=== PATIENT | male | born 2000 | race Two or more races ===

== ENCOUNTER 2024-09-10 18:53 | Emergency (ER) | payer MEDICAID, SELFPAY ==
[2024-09-10 19:06] VITALS: BP 108/69; PULSE 106; RESP 18; TEMP 38.1; O2SAT 97; BMI 21.6
--- NOTE | 2024-09-10 19:09 | XR_ITS ---
Examination: CT abdomen with intravenous contrast CT pelvis with intravenous contrast 2-D coronal reconstructions 2-D sagittal reconstructions Date and time of exam:September 10, 20[address] hrs. Indications: Right lower abdominal pain onset today. CTDI: vol (mGy) 5.49 DLP: (mGycm) 296 Technique: Multiple axial sections of the abdomen and pelvis have been obtained. 64 slice high-resolution scanner used. 3 mm axial sections have been obtained, post intravenous injection 60 cc [id number] 2-D sagittal, coronal reconstructions obtained. Low dose protocols were performed. One or more of the following dose reduction techniques were used; automated exposure control, adjustment of the mA and/or KV according to patient size, use of iterative reconstruction technique. Findings: No focal liver or splenic lesions No gallstones No pancreatic or adrenal mass Renal or ureteral calculi, no hydronephrosis Aorta normal size There is diffuse hyperemia involving the colon Normal appendix No bowel obstruction Normal prostate Contracted urinary bladder The osseous structures are intact Impression: Mild nonspecific diffuse colitis pattern
--- NOTE | 2024-09-10 19:11 | PD.EDRME ---
Rapid Medical Screening Exam [facility] Arrival date/time: 09/10/24 18:53 24M with no significant PMH presents to ED with 2 days of fevers/chills, NV, lower ab pain (LLQ>RLQ), and non-bloody diarrhea. Chief Complaint: Abdominal Pain Time Seen by Provider: 09/10/24 22:19 Vital signs: Vital Signs Temperature 100.5 F H 09/10/24 19:06 Pulse Rate 106 H 09/10/24 19:06 Respiratory Rate 18 09/10/24 19:06 Blood Pressure 108/69 09/10/24 19:06 Pulse Oximetry (%) 97 09/10/24 19:06 Oxygen Delivery Method Room Air 09/10/24 19:06
[2024-09-10 19:30] LABS: Basophils % (Auto) 0 % (0-2.5); Eosinophils % (Auto) 0 % (0-10); Hematocrit 41.9 % (41.0-53.0); Hemoglobin 14.4 g/dL (13.5-16.0); Immature Granulocytes % (Auto) 0 % (0-0); Immature Granulocytes Auto 0.04 Thou/mm3 (0.00-0.00); Lymphocytes # (Auto) 1.5 Thou/mm3 (1.0-4.8); Lymphocytes % (Auto) 12 % (10-50); Mean Corpuscular HGB Conc 34.4 g/dl (31.0-37.0); Mean Corpuscular Volume 90 fL (80-100); Monocytes # (Auto) 0.9 Thou/mm3 (0.0-0.8); Monocytes % (Auto) 8 % (0-12); Neutrophils # (Auto) 9.7 Thou/mm3 (1.8-7.7); Neutrophils % (Auto) 80 % (37-80); Nucleated Red Blood Cell % 0 /100 WBC (0); Platelet Count 182 Thou/mm3 (140-440); RDW Standard Deviation 42.6 fL (35.1-43.9); Red Blood Count 4.64 Miln/mm3 (4.50-5.90); White Blood Count 12.1 Thou/mm3 (3.8-10.6)
[2024-09-10 19:33] LABS: Lactate (Lactic Acid) 1.4 mMol/L (0.4-2.0)
[2024-09-10 19:45] LABS: Collection Type, Urine Clean Catch
[2024-09-10 19:58] LABS: Alanine Aminotransferase 16 U/L (10-49); Albumin, Serum 4.7 gm/dL (3.5-5.0); Albumin/Globulin Ratio 1.5 (1.2-2.2); Alkaline Phosphatase 80 U/L (46-116); Anion Gap 7 (7-16); Aspartate Amino Transferase 20 U/L (0-34); BUN/Creatinine Ratio 11 Ratio (12-20); Bilirubin,Total 0.6 mg/dL (0.3-1.2); Blood Urea Nitrogen 14 mg/dL (9-23); Calcium 9.3 mg/dL (8.3-10.6); Calcium (Corrected) 9.3 mg/dL (8.5-10.1); Carbon Dioxide 25.2 mMol/L (20.0-31.0); Chloride 100 mMol/L (98-107); Creatinine (Component) 1.3 mg/dL (0.6-1.3); Estimated Creatinine Clearance 79.9 mL/min (>60); Globulin 3.1 gm/dL (2.3-3.5); Glucose 150 mg/dL (74-106); Lipase 49 U/L (12-53); Osmolality,Calculated 268 (275-295); Procalcitonin 0.36 ng/ml (0.0-0.49); Sodium 132 mMol/L (136-145); Total Protein 7.8 gm/dL (5.7-8.2); eGFR > 60 See Note
[2024-09-10 20:02] VITALS: TEMP 38.1
[2024-09-10] MEDS: ACETAMINOPHEN 500 MG TABLET 1000 MG PO (20:02)
[2024-09-10] MEDS: ONDANSETRON ODT 4 MG TABRAP PO (20:02)
[2024-09-10 20:21] LABS: Bilirubin,Urine Negative (Negative); Blood,Urine Negative (Negative); Clarity,Urine Clear (Clear/Hazy); Color,Urine Yellow (Lt Yel-Yel); Culture Indicated,Urine Not Indicated; Glucose, Urine Negative (Negative); Ketones,Urine Negative (Negative); Leukocyte Esterase,Urine Negative (Negative); Nitrite,Urine Negative (Negative); Protein,Urine 1+ (Neg - Trace); RBC,Urine 3 /hpf (0-3); Specific Gravity,Urine 1.035 (1.001-1.035); Squamous Epithelial Cell,Urine 1 /hpf (0-5); Urobilinogen,Urine Negative mg/dL (0.0-1.0); WBC,Urine 4 /hpf (0-5)
[2024-09-10 20:25] LABS: Amphetamine/Methamp Scrn,U Negative (Negative); Barbiturate Screen,Urine Negative (Negative); Benzodiazepines Screen,Urine Negative (Negative); Benzoylecgonine Screen, Ur Negative (Negative); Fentanyl Screen,Urine Negative (Negative); Opiate Screen,Urine Negative (Negative); THC Screen,Urine Negative (Negative)
[2024-09-10 21:44] VITALS: TEMP 37.5
[2024-09-10 21:45] VITALS: TEMP 37.5
--- NOTE | 2024-09-10 22:19 | EDNOTE_ITS ---
ED Abdominal Pain RME/HPI General Chief Complaint: Abdominal Pain Stated complaint: Abdominal pain X 2 days Time seen by provider: 09/10/24 22:19 Arrival date/time: 09/10/24 18:53 24M with no significant PMH presents to ED with 2 days of fevers/chills, NV, lower ab pain (LLQ>RLQ), and non-bloody diarrhea. Limitations: no limitations Related Data Previous Rx's ?Medication ?Instructions ?Recorded ondansetron 4 mg disintegrating 4 mg PO Q8H PRN nausea and 09/10/24 tablet vomiting #30 tabs Allergies Allergy/AdvReac Type Severity Reaction Status Date / Time NKA* Allergy Uncoded 11/30/14 07:24 Review of Systems Review of Systems Systems Reviewed: All systems reviewed, normal except as documented Constitutional Constitutional: Reports system reviewed and no additional complaints, except as documented, Denies fever(s) and Denies headache(s) ENT Ears, Nose, Mouth, and Throat: Denies disequilibrium and Denies headache(s) Cardiovascular Cardiovascular: Reports system reviewed and no additional complaints, except as documented, Denies chest pain and Denies dyspnea Respiratory Respiratory: Reports system reviewed and no additional complaints, except as documented, Denies cough and Denies dyspnea Gastrointestinal Gastrointestinal: Reports system reviewed and no additional complaints, except as documented, Reports as per HPI, Denies abdominal pain, Reports diarrhea, Reports nausea and Reports vomiting Neurologic Neurologic: Reports system reviewed and no additional complaints, except as documented, Denies confusion, Denies disequilibrium and Denies headache(s) Psychiatric Psychiatric: Denies confusion Past Medical History Past Medical History CARDIAC: Negative Cardiac Disorders RESPIRATORY: Negative Asthma GENITOURINARY: Negative Renal Disease ENDOCRINE: Negative Diabetes Mellitus Type 2 HEMATOLOGIC: Negative Sickle Cell Disease Social History SMOKING STATUS: Never smoker ED Exam General Limitations: Present no limitations General appearance: Present alert and in no apparent distress Head Head exam: Present atraumatic Eye Eye exam: Present normal appearance, PERRL and EOMI ENT ENT exam: Present normal exam, normal oropharynx and mucous membranes moist Neck Neck exam: Present normal inspection, full ROM and trachea midline Chest Chest inspection: Present normal inspection and symmetric chest wall rise Respiratory Respiratory exam: Present normal lung sounds bilaterally Cardiovascular Cardiovascular exam: Present regular rate, normal rhythm and normal heart sounds Abdominal Exam Abdominal exam: Present soft and normal bowel sounds Abdominal tenderness: Present LLQ Extremities Exam Extremities exam: Present normal inspection and full ROM Back Exam Back exam: Present normal inspection and full ROM Neurological Exam Neurological exam: Present alert, oriented X3 and CN II-XII intact Psychiatric Psychiatric exam: Present normal affect and normal mood Skin Skin exam: Present warm, dry, intact and normal color Course Quality Measures none Orders Category Date Time Status CT Screening NOW Care 09/10/24 19:10 Active Insert IV NOW Care 09/10/24 19:[address] abdomen pelvis w con Stat Exams 09/10/24 19:09 Completed Blood Culture (Lab) Stat Lab 09/10/24 19:21 Received CBC Stat Lab 09/10/24 19:21 Completed CMP [Comprehensive Metabolic Panel] Stat Lab 09/10/24 19:21 Completed Drug Screen,Urine Stat Lab 09/10/24 19:26 Completed Lactate (Lactic Acid) Stat Lab 09/10/24 19:21 Completed Lipase Stat Lab 09/10/24 19:21 Completed Procalcitonin Stat Lab 09/10/24 19:21 Completed Urinalysis, C/S if Indicated Stat Lab 09/10/24 19:26 Completed Acetaminophen Tab [Tylenol ES Tab] Med 09/10/24 19:09 Discontinued 1,000 mg PO X1 ONE Ondansetron Odt [Zofran Odt] Med 09/10/24 19:09 Discontinued 4 mg PO X1 ONE Vital Signs Vital signs: Vital Signs Temperature 100.5 F H 09/10/24 19:06 Pulse Rate 106 H 09/10/24 19:06 Respiratory Rate 18 09/10/24 19:06 Blood Pressure 108/69 09/10/24 19:06 Pulse Oximetry (%) 97 09/10/24 19:06 Oxygen Delivery Method Room Air 09/10/24 19:06 O2 at 97% on RA and WNLs Abdominal Pain MDM MDM Narrative MDM Narrative:: 24M with no significant PMH presents to ED with 2 days of fevers/chills, NV, lower ab pain (LLQ>RLQ), and non-bloody diarrhea. Physical exam reveals mild LLQ tenderness. Patient is mildly febrile, but does not appear toxic. CT reveals non-specific colitis. Mild leukocytosis. Procal/lactate normal. Lipase normal. UA clean mild dehydration, which is also reflected with very mild hyponatremia, likely due to hypovolemia. Cr normal. Tox screen normal. Patient passed PO challenge. Likely viral gastroenteritis. Patient data External records reviewed:: [facility] previous records Clinical information provided by:: patient Social determinants that could affect healthcare access:: none Patient has the following chronic illnesses:: none How is presenting disease/condition affected by chronic disease/condition?: no chronic disease Evaluation data The following diagnostics were reviewed and interpreted by me:: lab results and radiology exam(s) Lab and/or radiology exams considered but not ordered:: ordered Interpretation Summary: above Medications / Prescriptions Medications or Prescriptions considered but not ordered:: ordered Medication administrations:: Medication Administration History Discontinued Medications Acetaminophen (Acetaminophen 500 Mg Tablet) 1,000 mg PO X1 ONE Stop: 09/10/24 19:10 Last Admin: 09/10/24 20:02 Dose: 1,000 mg Documented By: CARLOS Ondansetron HCl (Ondansetron Odt 4 Mg Tabrap) 4 mg PO X1 ONE; Protocol Stop: 09/10/24 19:10 Last Admin: 09/10/24 20:02 Dose: 4 mg Documented By: CARLOS above Consultations Consultation(s) initiated? (list below): No Diagnosis Differential diagnosis abdominal pain: abdominal pain, acute appendicitis, calculus of kidney, constipation, diverticulitis, gastroenteritis, pancreatitis and small bowel obstruction Most likely diagnosis given after review of the tests above:: gastroenteritis Admission Indicated Admission indicated?: not indicated Admission Request Was there a request for admission?: No Disposition Plan Disposition Plan: Discharge Discharge Attestation Discharge Attestation: The patient and all family members were given an opportunity to ask questions and understood the discharge instructions. Discharge instructions specifically effects, indications for sooner follow up or return to the emergency department, and the expected course of current diagnosis. Patient condition: Stable Discharge Plan Plan Patient Disposition: HOME (Self Care) Disposition Comment: Stable Prescriptions/Referrals Prescriptions/Med Rec: New ondansetron 4 mg tablet,disintegrating 4 mg PO Q8H PRN (Reason: nausea and vomiting) Qty: 30 0RF Referrals: Marko Blair MD [Primary Care Provider] - In 1 week Problem List Clinical Impression: Gastroenteritis Patient/Caregiver Discharge Instructions Education Materials: ED Diarrhea, Viral (Adult) Additional Instructions: Please follow-up with PCP within 24-48 hours and return immediately if symptoms worsen. Keep hydrated. Print Language: Greenlandic Stand Alone Forms: Patient Portal Info Letter DYAN/FERTILIZER LOADER Supervising Physician PA/FERTILIZER LOADER Supervising Physician: Dr. Hanson
== END 2024-09-10 22:31 | disposition home or self-care (01) ==
PROVIDERS: Physician Assistant; Emergency Provider Emergency Medicine; PCP Family Medicine
DX: K52.9 Noninfective gastroenteritis and colitis, unspecified (principal)
CPT/HCPCS: 36415; 74177; 80053; 80307; 81001; 83605; 83690; 84145; 85025; 87040; 87077; 87186; 99285; A4649; Q0162; Q9967; A9270